=== PATIENT | male | born 1950 | race Caucasian/White ===

== ENCOUNTER → 2018-08-11 | Outpatient (CLI) | payer MEDICARE, MEDICAID ==
[~2018-08-11] MED LIST: COGENTIN0.5 MG PO; PROLIXIN1 MG PO; UNABLE
== END ==
LOC: COL.RAD 13:30
DX: N50.89 Other specified disorders of the male genital organs (principal); M54.5 Low back pain

== ENCOUNTER → 2018-08-23 | Outpatient (CLI) | payer MEDICARE, MEDICAID | LOC: COL.RAD 08-14 08:15 | DX: M48.07 Spinal stenosis, lumbosacral region (principal); M51.27 Other intervertebral disc displacement, lumbosacral region ==

== ENCOUNTER 2018-12-04 13:51 | Emergency (ER) | payer MEDICARE, MEDICAID ==
[~2018-12-04] VITALS: Ht 165.1 cm; Wt 84.1 kg
[2018-12-04 14:52] LABS: BASO # 0.1 (0.0-0.2); BASO % 0.5 % (0.0-2.0); EOS # 0.2 (0.0-0.7); EOS % 1.7 % (0-4.0); GRAN # 8.5 (1.4-6.5); GRAN % 82.8 % (42.2-75.2); HEMATOCRIT 39.1 % (42.0-52.0); HEMOGLOBIN 13.3 g/dl (13.5-18.0); LYMPH # 0.8 (1.2-3.4); MEAN CELL VOLUME 88 fl (80.0-100.0); MEAN CORPUSCULAR HEMOGLOBIN 30 pg (27.0-31.0); MEAN CORPUSCULAR HGB CONC 34 g/dl (33.0-37.0); MONO # 0.7 (0.1-0.6); MONO % 6.5 % (1.7-9.3); PLATELET COUNT 145 K/mm3 (130-400); RED BLOOD COUNT 4.47 M/mm3 (4.20-5.60); REDCELL DISTRIBUTION WIDTH-CV 13.2 % (11.5-14.5)
[2018-12-04 15:01] LABS: ALBUMIN 3.1 gm/dL (3.5-5.0); BILIRUBIN,TOTAL 0.6 mg/dL (0.0-1.0); CALCIUM 8.5 mg/dL (8.4-10.2); CREATININE, serum 1.17 (0.66-1.25); POTASSIUM 3.4 mmol/L (3.4-5.0); TOTAL PROTEIN 5.7 gm/dL (6.4-8.2)
[2018-12-04 15:12] LABS: TROPONIN-I 0.034 ng/mL (0.000-0.035)
[2018-12-04 15:14] VITALS: TEMP 97.9
[2018-12-04 15:17] LABS: PROLACTIN 27.6 ng/mL (3.7-17.9)
[2018-12-04 16:13] LABS: COLLECTION METHOD RANDOM VOIDED
[2018-12-04 16:19] LABS: PH 8 (5-8); SQUAMOUS EPITHELIAL 0-2 /hpf; URINE APPEARANCE Clear; URINE BACTERIA None Seen /hpf; URINE BILIRUBIN Negative (NEGATIVE); URINE BLOOD Negative (NEGATIVE); URINE COLOR Straw; URINE GLUCOSE Negative (NEGATIVE); URINE KETONE Negative (NEGATIVE); URINE LEUKOCYTE ESTERASE Negative (NEGATIVE); URINE NITRATE Negative (NEGATIVE); URINE PROTEIN(semi-quant) Negative (NEGATIVE); URINE RBC 0-2 /hpf; URINE UROBILINOGEN Negative (NEGATIVE); URINE WBC 0-2 /hpf
[2018-12-04] MEDS ORDERED: MOBIC15 MG PO (20:56)
[2018-12-04] MEDS ORDERED: LIPITOR 40MG TA40 MG PO (20:57)
[2018-12-04] MEDS ORDERED: ZANTAC 300300 MG PO (20:58)
[2018-12-04] MEDS ORDERED: FLOMAX 0.40.4 MG/CAP PO (21:00)
[2018-12-04 22:37] VITALS: BP 139/84; PULSE 83
== END 2018-12-04 22:42 | disposition short-term general hospital (02) ==
LOC: COL.ER 13:51
PROVIDERS: Emergency Medicine
DX: T67.0XXA Heatstroke and sunstroke, initial encounter (principal); R56.9 Unspecified convulsions; R79.89 Other specified abnormal findings of blood chemistry
CPT/HCPCS: J1644; J7030

== ENCOUNTER 2019-01-29 13:05 | Emergency (ER) | payer MEDICARE, MEDICAID ==
[~2019-01-29 13:05] MED LIST changes: +FLOMAX 0.40.4 MG/CAP PO; +LIPITOR 40MG TA40 MG PO; +MOBIC15 MG PO; +ZANTAC 300300 MG PO
[2019-01-29 13:16] VITALS: BP 109/56; TEMP 98.5
[2019-01-29 14:31] LABS: BASO % 0.4 % (0.0-2.0); EOS % 0.4 % (0-4.0); GRAN # 7.3 (1.4-6.5); GRAN % 74.7 % (42.2-75.2); HEMATOCRIT 38.6 % (42.0-52.0); HEMOGLOBIN 12.7 g/dl (13.5-18.0); LYMPH # 0.9 (1.2-3.4); LYMPH % 8.9 % (20.0-51.0); MEAN CELL VOLUME 91 fl (80.0-100.0); MEAN CORPUSCULAR HEMOGLOBIN 30 pg (27.0-31.0); MEAN CORPUSCULAR HGB CONC 33 g/dl (33.0-37.0); MEAN PLATELET VOLUME 11.6 fl (7.4-10.4); MONO # 1.5 (0.1-0.6); MONO % 15.1 % (1.7-9.3); PLATELET COUNT 110 K/mm3 (130-400); RED BLOOD COUNT 4.24 M/mm3 (4.20-5.60)
[2019-01-29 14:41] LABS: ALBUMIN 3.7 gm/dL (3.5-5.0); BILIRUBIN,TOTAL 0.8 mg/dL (0.0-1.0); CALCIUM 9.1 mg/dL (8.4-10.2); CREATININE, serum 1.3 (0.66-1.25); POTASSIUM 3.6 mmol/L (3.4-5.0); TOTAL PROTEIN 6.3 gm/dL (6.4-8.2)
[2019-01-29 17:06] LABS: COLLECTION METHOD CLEAN CATCH
[2019-01-29 17:11] LABS: MUCOUS Present /lpf; PH 5 (5-8); SQUAMOUS EPITHELIAL None Seen /hpf; URINE APPEARANCE Clear; URINE BACTERIA Rare /hpf; URINE BILIRUBIN Negative (NEGATIVE); URINE BLOOD 1+ (NEGATIVE); URINE COLOR Amber; URINE GLUCOSE Negative (NEGATIVE); URINE KETONE 1+ (NEGATIVE); URINE LEUKOCYTE ESTERASE Negative (NEGATIVE); URINE NITRATE Negative (NEGATIVE); URINE PROTEIN(semi-quant) Negative (NEGATIVE)
[2019-01-29 21:00] VITALS: PULSE 82
== END 2019-01-29 20:57 | disposition short-term general hospital (02) ==
LOC: COL.ER 13:05
PROVIDERS: Family Medicine
DX: S02.40DA Maxillary fracture, left side, initial encounter for closed fracture (principal); R40.2412 Glasgow coma scale score 13-15, at arrival to emergency department; W01.198A Fall on same level from slipping, tripping and stumbling with subsequent striking against other object, initial encounter
CPT/HCPCS: J1630; J7030

== ENCOUNTER 2019-02-16 09:38 | Outpatient (RCR) | payer MEDICARE, MEDICAID | END 2019-05-17 | disposition home or self-care (01) | LOC: WSOT | DX: R53.1 Weakness (principal); R29.6 Repeated falls ==

== ENCOUNTER 2019-04-12 13:00 | Outpatient (RCR) | payer MEDICARE, MEDICAID | END 2019-06-11 | disposition still patient (30) | LOC: MKS.ESL.PT | DX: R53.1 Weakness (principal); R29.6 Repeated falls ==

== ENCOUNTER 2022-06-07 08:01 | Outpatient (RCR) | payer MEDICARE, MEDICAID ==
[2022-06-07] VITALS (143 sets, daily range): O2SAT 46–100
[~2022-06-07 08:01] MED LIST changes: +ARICEPT10 MG PO; +FOLIC ACID 11 MG/TA1 PO; +NAMENDA 10MG TA10 MG PO; +TYLENOL 8 HR PO; +VITAMIN D31000 I1 PO
[2022-06-08] VITALS (35 sets, daily range): O2SAT 81–96
== END 2022-06-12 13:59 ==
LOC: MKS.ESL.PT 08:01
DX: R26.89 Other abnormalities of gait and mobility (principal)